=== PATIENT | female | born 1950 | race Hispanic/Latino ===

== ENCOUNTER 2017-06-02 10:14 | Outpatient (CLI) | payer MEDICARE ==
--- NOTE | 2017-06-02 15:31 | Mammography Report ---
BILATERAL DIGITAL SCREENING MAMMOGRAM with CAD: 06/02/17 10:14:00 CLINICAL: Routine screening. COMPARISON:None available. FINDINGS: The breasts are almost entirely fatty. No mass, architectural distortion or suspicious calcifications. IMPRESSION: No mammographic evidence of malignancy. BI-RADS CATEGORY: 1 - - Negative RECOMMENDATION: Routine mammographic screening in one year. COMMENT: Patient follow-up letters are generated by our [employer] application.
== END 2017-06-02 10:15 | disposition home or self-care (01) ==
LOC: SPVWC 10:14
PROVIDERS: ATTEND Family Medicine
DX: Z12.31 Encounter for screening mammogram for malignant neoplasm of breast (principal)
CPT/HCPCS: 77067; G0202

== ENCOUNTER 2017-07-11 12:44 | Outpatient (CLI) | payer MEDICARE ==
[2017-07-11 14:03] LABS: Blood Urea Nitrogen 12 mg/dL (7-17)
[2017-07-11] MEDS ORDERED: NACL ONE (15:36)
--- NOTE | 2017-07-11 16:57 | Cat Scan Report ---
CT ABDOMEN AND PELVIS WITH CONTRAST INDICATION: Nausea, right-sided abdominal pain. COMPARISON: None similar. FINDINGS: Abdomen and pelvis CT performed following oral contrast and intravenous administration of 100 cc of Omnipaque 300. LUNG BASES: Nonspecific distal esophageal wall prominence/thickening, not excluded for gastroesophageal reflux and/or hiatal hernia, amongst others. ABDOMEN: Cholecystectomy clips. Liver, spleen, pancreas, adrenals, IVC and kidneys within normal limits. Couple of small, subcentimeter left renal cortical indeterminate hypodensities. Aortic atherosclerotic changes with wall calcifications and intramural thrombus. Focal distal aortic aneurysm measuring up to 3 cm caliber as on axial image 141, series 2 as well. Proximal SMA atherosclerotic changes also noted. Opacified GI tract nonobstructive. Normal appendix seen in the right hemipelvis with somewhat low lying cecum. Mild ascending colon stool. Few descending colon diverticuli. PELVIS: Proximal and mid sigmoid diverticulosis without acute complication. Uterus, adnexa/ovaries, urinary bladder and the rectum within normal limits. No free fluid or significant adenopathy. CONCLUSION: No acute CT abnormality with various incidental findings, as above. Thank you for the opportunity to participate in this patient's care.
== END 2017-07-11 12:45 | disposition home or self-care (01) ==
LOC: CT 12:44
PROVIDERS: ATTEND Family Medicine
DX: K57.30 Diverticulosis of large intestine without perforation or abscess without bleeding (principal); I70.0 Atherosclerosis of aorta; R11.0 Nausea; Z90.49 Acquired absence of other specified parts of digestive tract
CPT/HCPCS: 36415; 74177; 82565; 84520; Q9967